=== PATIENT | female | born 1990 | race Caucasian/White ===

== ENCOUNTER → 2021-05-21 | Outpatient (CLI) | payer BC | LOC: KOH-I 12:01 | DX: M54.5 Low back pain (principal); M46.07 Spinal enthesopathy, lumbosacral region | CPT/HCPCS: 72100 ==

== ENCOUNTER → 2021-10-06 | Outpatient (CLI) | payer BC | LOC: US 14:42 | DX: R89.1 Abnormal level of hormones in specimens from other organs, systems and tissues (principal) | CPT/HCPCS: 76830 ==